=== PATIENT | male | born 1975 | race Hispanic/Latino ===

== ENCOUNTER 2018-06-24 20:11 | Emergency (ER) | payer BC | END 2018-06-24 21:13 | disposition home or self-care (01) | LOC: EDH 20:11 | DX: S46.902A Unspecified injury of unspecified muscle, fascia and tendon at shoulder and upper arm level, left arm, initial encounter (principal); X50.0XXA Overexertion from strenuous movement or load, initial encounter; Y93.89 Activity, other specified; Y92.89 Other specified places as the place of occurrence of the external cause; Y99.8 Other external cause status | CPT/HCPCS: 73020; 73060 ==

== ENCOUNTER 2024-03-18 20:53 | Emergency (ER) | payer BC ==
[~2024-03-18] VITALS: Ht 182.9 cm; Wt 113.4 kg
[2024-03-18 20:57] VITALS: BP 174/91; PULSE 71; RESP 24; TEMP 97.9
[2024-03-18] MEDS: methoCARBamol 500 MG TABLET PO SCH (22:07)
[2024-03-18] MEDS: LIDOCAINE 4% ADH..PATCH TP STA (22:07)
[2024-03-18] MEDS: HYDROcodone/APAP 5/325 1 TAB TABLET PO STA (22:08)
[2024-03-18] MEDS: dexaMETHasone SOD PHOSPHATE 4 MG/ML 1ML VIAL IM STA (22:08)
[2024-03-18] MEDS: ketOROlac 15MG/ML VIAL (15MG/ML) IM STA (22:08)
--- NOTE | 2024-03-18 22:10 | HMCIMG ---
US VENOUS DOPPLER UNILATERAL HISTORY: Right leg pain COMPARISON: None TECHNIQUE: Right lower extremity venous Doppler ultrasound study was performed. FINDINGS: The right common femoral, femoral, popliteal, and posterior tibial veins are visualized. Normal flow with augmentation and compressibilities are demonstrated. Right tibia saphenous vein is patent. IMPRESSION: 1. No evidence of deep venous thrombosis is seen.
--- NOTE | 2024-03-18 22:46 | HMCIMG ---
LUMBAR SPINE 2-3VWS HISTORY: Back pain COMPARISON: None FINDINGS: 3 images of lumbar spine were obtained. Disc space narrowing is seen at the L5-S1 level. Minimal grade 1 anterolisthesis is seen at the L4-5 level. There is straightening of normal lordotic curvature which may be related to muscle spasm or positioning. No loss of vertebral height is seen. No fracture or dislocation is seen. Degenerative changes are seen. IMPRESSION: 1. No fracture is seen.
--- NOTE | 2024-03-18 23:34 | ERN ---
ED Note History of Present Illness Stated Complaint: C/O LOWER BACK PAIN RADIATING DOWN RT LEG Chief Complaint: Back Pain-No Injury Time Seen by MD: 21:02 Time Seen by Midlevel: 21:08 Dictation: 48-year-old male with no past medical history coming in complaining of mid lower back pain radiating to the right leg. Patient states couple of days ago he was lifting something heavy started with a back spasm and now worsened with leg pain and feeling of numbness. Denies any incontinence, or saddle anesthesia. Denies any trauma. Denies any smoking or drinking. Denies any recent travels or any hormone use. Allergies: Coded Allergies: No Known Allergies (Unverified Allergy, Unknown, 03/18/24) Past Medical History Past Medical History: No Pertinent History Surgical History: None Review of System Dictation Constitutional: Negative for fever,chills, and weight loss Eyes: Negative for injury, pain,redness, and discharge ENT: Negative for injury,pain or swelling Cardiovascular: Negative for chest pain, palpitations, and edema Respiratory: Negative for shortness of breath, cough, and wheezing, Abdomen/GI: Negative for abdominal pain, nausea, vomiting, diarrhea, and constipation Back: Negative for injury and pain : Negative for injury, bleeding and discharge MS/Extremity: Complaining of lower back pain radiating to the right leg Skin: Negative for rash, and discoloration Neuro: Negative for headache, weakness, numbness, tingling, and seizure Psych: Negative for suicide ideation, homicidal ideation, and hallucinations Review of Systems: was completed Initial Vital Sign VS Vital Signs Date Time Temp Pulse Resp B/P (MAP) Pulse Ox O2 Delivery O2 Flow Rate FiO2 03/18/24 20:57 97.9 71 24 174/91 98 Room Air Physical Exam Dictation General: awake, alert, NAD Head/Face: Normocephalic, atraumatic Eyes: PERRL, EOMI, vision at baseline ENT: oral cavity clear, TMs clear, no signs of infection Neck: Trachea midline, supple, no nuchal rigidity Cardiovascular: RRR, normal S1/S2, No MRGs, no JVD Respiratory: CTAB, no respiratory distress, No rales or wheezes Abdomen: Soft, non-tender, non-distended, normal bowel sounds, no guarding or rebound. Skin: Warm, dry, normal turgor, no rash MS/Extremity: Pulses equal, no cyanosis, neurovascular intact, FROM, pain upon lifting his right leg, states pain is in his mid lower back Neuro: COAx4, GCS 15, strength 5/5, CN 2-12 intact, normal cerebellar exam, normal gait, Psych: Normal behavior, mood, and affect normal Results (Laboratory/Radiology) Labs Reviewed?: Yes X-RAY Comment: [facility] [address] [place] [address] [id number] IMAGING REPORT Signed PATIENT: SORAYA DUEÑAS MR#: [id number] : 1975 SEX: M AGE: 48 LOCATION: [facility] ORDER 36 STATUS: REG ER REPORT#: [id number] SERVICE 36 REASON: back pain ORDERING PHYSICIAN: EDMUND PICKERING NP PROCEDURE: LUMB 2 3VW - LUMBAR SPINE 2-3VWS LUMBAR SPINE 2-3VWS HISTORY: Back pain COMPARISON: None FINDINGS: 3 images of lumbar spine were obtained. Disc space narrowing is seen at the L5-S1 level. Minimal grade 1 anterolisthesis is seen at the L4-5 level. There is straightening of normal lordotic curvature which may be related to muscle spasm or positioning. No loss of vertebral height is seen. No fracture or dislocation is seen. Degenerative changes are seen. IMPRESSION: 1. No fracture is seen. DICTATED BY: ALLEN HATCH MD DATE: 03/18/242243 ELECTRONICALLY SIGNED BY: ALLEN HATHC MD DATE: 03/18/242245 Ultrasound Comment: [facility] [address] [place] [address] [id number] IMAGING REPORT Signed PATIENT: SORAYA DUEÑAS MR#: [id number] : 1975 SEX: M AGE: 48 LOCATION: [facility] ORDER 36 STATUS: REG ER HOSPITAL REPORT#: [id number] SERVICE 36 REASON: right leg pain ORDERING PHYSICIAN: PICKERING,EDMUND DRUPAL PHP DEVELOPER PROCEDURE: VENOUS UNI - US VENOUS DOPPLER UNILATERAL US VENOUS DOPPLER UNILATERAL HISTORY: Right leg pain COMPARISON: None TECHNIQUE: Right lower extremity venous Doppler ultrasound study was performed. FINDINGS: The right common femoral, femoral, popliteal, and posterior tibial veins are visualized. Normal flow with augmentation and compressibilities are demonstrated. Right tibia saphenous vein is patent. IMPRESSION: 1. No evidence of deep venous thrombosis is seen. DICTATED BY: ALLEN HATCH MD DATE: 03/18/242206 ELECTRONICALLY SIGNED BY: ALLEN HATCH MD DATE: 03/18/242209 ED Course ED Course Orders Procedure Category Date Status Time Lumbar Spine 2-3vws RAD 03/18/24 Resulted 21:37 Us Venous Doppler US 03/18/24 Resulted Unilateral 21:37 Lidocaine (Lidocaine PHA 03/18/24 Complete Patch 4%) 21:37 Ketorolac PHA 03/18/24 Complete Tromethamine 15mg/Ml 21:37 Methocarbamol PHA 03/18/24 In Process (Methocarbamol) 22:00 Dexamethasone 4mg/Ml PHA 03/18/24 Complete 1ml Vial (Dexametha 21:37 Hydrocodone/Apap PHA 03/18/24 Complete 5/325 ([place] 5/325mg) 21:37 Current Medications Medications (Trade) Dose Ordered Sig/Heriberto Route PRN Reason Start Time Stop Time Status Last Admin Dose Admin Acetaminophen/ Hydrocodone Bitart (NORco 5/325MG) 1 tab ONCE STAT PO 03/18/24 21:37 03/18/24 21:39 DC 03/18/24 22:08 Dexamethasone Sodium Phosphate (dexaMETHasone 4MG/ML 1ML VIAL) 6 mg ONCE STAT IM 03/18/24 21:37 03/18/24 21:39 DC 03/18/24 22:08 Ketorolac Tromethamine (toRADol) 15 mg ONCE STAT IM 03/18/24 21:37 03/18/24 21:39 DC 03/18/24 22:08 Lidocaine (Lidocaine Patch 4%) 1 each ONCE STAT TP 03/18/24 21:37 03/18/24 21:39 DC 03/18/24 22:07 Methocarbamol (methoCARBamol) 1,000 mg ONCE PO 03/18/24 22:00 04/17/24 21:59 03/18/24 22:07 Vital Signs Date Time Temp Pulse Resp B/P (MAP) Pulse Ox O2 Delivery O2 Flow Rate FiO2 03/18/24 20:57 97.9 71 24 174/91 98 Room Air Medical Decision Making MDM MDM: 48-year-old male with no past medical history coming in complaining of mid lower back pain radiating to the right leg. Patient states couple of days ago he was lifting something heavy started with a back spasm and now worsened with leg pain and feeling of numbness. Denies any incontinence, or saddle anesthesia. Denies any trauma. Denies any smoking or drinking. Denies any recent travels or any hormone use. Patient in swabs her concern for patient having a blood clot related to his right leg pain. Ultrasound of the right lower extremities negative for DVT, x-ray of the L-spine no acute findings. After pain medication patient states he feels much better. Educated patient that he needs to follow up with his PCP and return to the ER if symptoms worsen. Patient states that he uses a work belt because he is a [employer]. Educated that some of this pain could be in relation to him standing for long periods of time and wearing the heavy belt. Differential diagnosis: Rationale: Tests considered and ordered secondary to shared decision making include: Previous outside records reviewed: Old ER visits. Risk of complication and/or morbidity or mortality of patient management: None Medications-Per medication reconciliation Need for hospitalization: Patient does not meet criteria for hospitalization. Need for emergency major/minor surgery: No There are no social concerns with this patient. Prescription drug management Prescriptions will include symptomatic care Patient's prior external medical records from other ER visits were reviewed by me as indicated. Prior testing and results from previous visits were reviewed. Prior tests were taken into account with medical decision making and resource utilization, independent historian/historians were used to obtain complete medical history. I independently interpreted the test that were performed, results were reviewed by me and considered findings on radiology if ordered. Medical management and examination interpretation discussions were had by me with other qualified healthcare professionals as indicated for the patient's care. DX & DISP Disposition: Discharge Departure Impression: Primary Impression: Arthrolithiasis Additional Impressions: Muscle spasm, Sciatic leg pain Condition: Stable Scripts Methocarbamol (Methocarbamol) 1,000 Mg Tablet 1000 MG PO QID PRN for PAIN for 5 Days, #20 TAB Prov: EDMUND PICKERING DRUPAL PHP DEVELOPER 1/8/25 Ketorolac Tromethamine (Ketorolac Tromethamine) 10 Mg Tablet 1 TAB PO Q6HPRN PRN for pain for 5 Days, #20 TAB 0 Refills Prov: EDMUND PICKERING NP 03/18/24 Lidocaine HCl (Lidocaine HCl) 4 % Adh..patch 1 PATCH TP DAILY for 10 Days, #10 PATCH 0 Refills Prov: EDMUND PICKERING NP 03/18/24 Additional Instructions: Please take medications as prescribed, follow up with your primary doctor in 1-2 days. Please return to the emergency room if you develop any worsening symptoms. Referrals: SELF,REFERRAL (PCP) Time of Disposition: 23:46 I have reviewed the case, and I agree with, Diagnosis and Plan EDMUND PICKERING NP Mar 18, 2024 23:34
[2024-03-18] MEDS ORDERED: METH100054 PO (23:45)
[2024-03-18] MEDS ORDERED: KETO10TA2 PO (23:45)
[2024-03-18] MEDS ORDERED: LIDO-15 TP (23:45)
== END 2024-03-18 23:53 | disposition home or self-care (01) ==
LOC: EDH 20:53
DX: M10.9 Gout, unspecified (principal); M62.838 Other muscle spasm; M54.31 Sciatica, right side; M79.661 Pain in right lower leg
CPT/HCPCS: 99284; 93971; 72100; 96372 ×2; J1100; J1885